=== PATIENT | female | born 1945 | race Caucasian/White ===

== ENCOUNTER → 2016-04-22 | Outpatient (CLI) | payer OTHER | LOC: BMCIMAGING 15:16 | PROVIDERS: ATTEND Internal Medicine | DX: R05 Cough (principal) ==

== ENCOUNTER → 2016-05-27 | Outpatient (CLI) | payer OTHER | LOC: BMCIMAGING 12:57 | PROVIDERS: ATTEND Nurse Practitioner Adult Health | DX: R05 Cough (principal); R53.81 Other malaise ==

== ENCOUNTER → 2016-10-07 | Outpatient (CLI) | payer OTHER | LOC: BMCIMAGING 11:15 | DX: J98.4 Other disorders of lung (principal) ==

== ENCOUNTER → 2016-10-29 | Outpatient (CLI) | payer OTHER | LOC: BMCIMAGING 08:52 | PROVIDERS: ATTEND Internal Medicine Endocrinology, Diabetes & Metabolism | DX: Z13.29 Encounter for screening for other suspected endocrine disorder (principal) | CPT/HCPCS: 76536-PO ==

== ENCOUNTER → 2016-10-31 | Outpatient (CLI) | payer OTHER | LOC: FIMAGING 14:48 | PROVIDERS: ATTEND Internal Medicine Infectious Disease | DX: J40 Bronchitis, not specified as acute or chronic (principal); C90.00 Multiple myeloma not having achieved remission; J32.4 Chronic pansinusitis; J34.2 Deviated nasal septum ==

== ENCOUNTER → 2016-11-05 | Outpatient (CLI) | payer OTHER | LOC: FIMAGING 10:06 | PROVIDERS: ATTEND Nurse Practitioner Adult Health | DX: R92.8 Other abnormal and inconclusive findings on diagnostic imaging of breast (principal) | CPT/HCPCS: G0204 ==

== ENCOUNTER 2017-02-04 10:09 | Day surgery (SDC) | payer OTHER ==
[2017-02-04] MEDS ORDERED: LIDOCAINE 1% 2 ML INJ ID PRN (10:44)
[2017-02-04] MEDS ORDERED: LR 1,000 ML IV ONE (10:44)
[2017-02-04 11:00] VITALS: PULSE 70
--- NOTE | 2017-02-04 12:46 | PDGENHP ---
History & Physical Chief Complaint: Screening colonoscopy Relevant Physical Exam: GEN: NAD. Cardiac: RRR. Lungs: CTA B. Abd: SOft, nt, nd
[2017-02-04] MEDS ORDERED: PROPOFOL/EMULSION 500 MG/50 ML BOTTLE IV ONE (12:47)
--- NOTE | 2017-02-04 13:00 | PDANEPAE ---
ANE Past Medical History - Cardiovascular History Hx Hypertension: No Hx Arrhythmias: No Hx Chest Pain: No Hx Coronary Artery / Peripheral Vascular Disease: No Hx CHF / Valvular Disease: No Hx Palpitations: No - Pulmonary History Hx COPD: Yes Hx Asthma/Reactive Airway Disease: Yes Hx Recent Upper Respiratory Infection: No Hx Oxygen in Use at Home: Yes Hx Sleep Apnea: Yes Sleep Apnea Screening Result - Last Documented: Positive Pulmonary History Comment: ASTHMA VS LUNG INFECTION 10/2016. TRYING VARIOUS INHALERS CURRENTLY. FLU 01/17/2017. TB 1968. [facility] USES C-PAP. PE 08/2014 - Neurologic History Hx Cerebrovascular Accident: No Hx Seizures: No Hx Dementia: No Neurologic History Comment: TIA - Endocrine History Hx Diabetes: No Hypothyroid: No Hyperthyroid: No Obesity: no - Renal History Hx Renal Disorders: No - Liver History Hx Hepatic Disorders: No - Neurological & Psychiatric Hx Hx Neurological and Psychiatric Disorders: Yes Neurological / Psychiatric History Comment: ANXIETY - Cancer History Hx Cancer: Yes Cancer History Comment: SMOLDERING MULTIPLE MYLEOMA - GI History Gastrointestinal History Comment: PREV COLONOSCOPY - Other Health History Other Health History: FACTOR 5 LEIDAN RECENTLY WAS SEEN BY DR LINDA GOODWIN. BORDERLINE ANEMIA. BURNING MOUTH SYNDROME. CURRENTLY HAS A BLACK HAIRY TONGUE AND PAIN IN REGION. DVT 30 YRS AGO. OSTEOPENIA/POROSIS - Surgical History Prior Surgeries: LT 4TH TOE REMVL CYST AND BONE SPUR 05/2012. TONSILLECTOMY ANE Review of Systems Review of Systems: - Exercise capacity METS (RN): 4 METS ANE Patient History - Allergies Allergies/Adverse Reactions: Tetracyclines Allergy (Verified 10/24/14 13:53) - Home Medications Home Medications: CITRACAL-VIT D 250 MG-200 TAB DAILY 10/24/14 [Last Taken 02/04/17] Rivaroxaban [Xarelto] DAILY 10/24/14 [Last Taken 01/31/17] Estradiol Transdermal Patch ONCE 01/28/17 [Last Taken 02/03/17] Herbal Drugs DAILY 01/28/17 [Last Taken 01/30/17] Prometrium HS 01/28/17 [Last Taken 02/04/17] - NPO status NPO Since - Liquids (Date): 02/04/17 NPO Since - Liquids (Time): 02:30 NPO Since - Solids (Date): 02/03/17 NPO Since - Solids (Time): 08:00 - Anes Hx Anes Hx: no prior problems - Smoking Hx Smoking Status: Former smoker - Alcohol Use Alcohol Use: Rarely - Family Anes Hx Family Anes Hx: neg - N/A ANE Labs/Vital Signs - Vital Signs Blood Pressure: 121/47 Heart Rate: 70 Respiratory Rate: 16 O2 Sat (%): 95 Height: 157.48 cm Weight: 57.606 kg ANE Physical Exam - Airway Neck exam: FROM Mallampati Score: Class 2 Mouth exam: normal dental/mouth exam - Pulmonary Pulmonary: no respiratory distress, no rales or rhonchi, clear to auscultation - Cardiovascular Cardiovascular: regular rate and rhythym, no murmur, rub, or gallop - ASA Status ASA Status: III ANE Anesthesia Plan Anesthesia Plan: MAC Total IV Anesthesia: Yes
[2017-02-04] MEDS ORDERED: ACETAMINOPHEN 500 MG TAB PO PRN (13:02)
[2017-02-04] MEDS ORDERED: ONDANSETRON 4 MG/2 ML VIAL IVP PRN (13:02)
[2017-02-04] MEDS ORDERED: ALBUTEROL 3 ML DEYVIAL IH PRN (13:02)
[2017-02-04] MEDS ORDERED: LR 500 ML IV PRN (13:02)
[2017-02-04] MEDS ORDERED: NALOXONE HCL 0.4 MG/ML INJ IVP PRN (13:02)
--- NOTE | 2017-02-04 13:20 | GIREPORT ---
Formerly [facility] - Endoscopy Department Patient Name: Michelle Mclaughlin Procedure Date: 02/04/2017 12:40 PM Patient Type: Outpatient Attending / ER Physician: Sg Greenberg MD Procedure: Colonoscopy Indications: Screening for colorectal malignant neoplasm Providers: Sg Greenberg MD Medicines: Monitored Anesthesia Care Complications: No immediate complications. Description of Procedure: After obtaining informed consent, the scope was passed under direct vis ion. Throughout the procedure, the patient's blood pressure, pulse, and oxyg en saturations were monitored continuously. The Colonoscope with irrigatio n channel was introduced through the anus and advanced to the terminal il eum, with identification of the appendiceal orifice and IC valve. The colono scopy was performed without difficulty. The patient tolerated the procedure w ell. The quality of the bowel preparation was good. Findings: The perianal and digital rectal examinations were normal. The terminal ileum appeared normal. A 6 mm polyp was found in the sigmoid colon. The polyp was sessile. The polyp was removed with a cold snare. Resection and retrieval were compl ete. Verification of patient identification for the specimen was done by the physician and nurse using the patient's name and date. Estimated blood loss was minimal. The retroflexed view of the distal rectum and anal verge was normal and showed no anal or rectal abnormalities. Estimated Blood Loss: Estimated blood loss: none. Post Op Diagnosis: - The examined portion of the ileum was normal. - One 6 mm polyp in the sigmoid colon, removed with a cold snare. Resec cee and retrieved. - The distal rectum and anal verge are normal on retroflexion view. Recommendation: - Discharge patient to home (with escort). - Resume previous diet. - Continue present medications. - Repeat colonoscopy in 5-10 years for surveillance based on pathology results. If the polyp is found to be adenomatous a repeat colonoscopy i n 5 years is recommended. - Await pathology results. Results are available within 10 days. - Thank you for allowing me to participate in the care of your patient. Attending Participation: I personally performed the entire procedure. Sg Greenberg MD Sg Greenberg MD 02/04/2017 1:19:47 PM This report has been signed electronicallyDakayla Greenberg MD Number of Addenda: 0 Note Initiated On: 02/04/2017 12:40 PM [email or web address]
--- NOTE | 2017-02-04 13:26 | POSTANESTH ---
Post Anesthetic Evaluation Cardiovascular Status: Normal, Stable Respiratory Status: Normal, Stable Level of Consciousness/Mental Status: Can Participate in Eval Pain Control: Adequate, Prn Tx Ordered Nausea/Vomiting Control: Adequate, Prn Tx Ordered Complications Possibly Related to Anesthesia: None Noted
[2017-02-04 14:37] VITALS: RESP 16
[2017-02-04 15:58] VITALS: BP 106/58; O2SAT 96
[2017-02-04 16:00] VITALS: TEMP 98.1
== END 2017-02-04 15:38 | disposition home or self-care (01) ==
LOC: FSGY 10:09
PROVIDERS: ATTEND Internal Medicine Gastroenterology
PROC: 0DBN8ZX Excision of Sigmoid Colon, Via Natural or Artificial Opening Endoscopic, Diagnostic (ICD-10-PCS; principal; 2017-02-04 11:15)
DX: Z12.11 Encounter for screening for malignant neoplasm of colon (principal); D12.5 Benign neoplasm of sigmoid colon; C90.00 Multiple myeloma not having achieved remission; R53.83 Other fatigue; R53.81 Other malaise; R05 Cough; D68.51 Activated protein C resistance; G47.33 Obstructive sleep apnea (adult) (pediatric); J44.9 Chronic obstructive pulmonary disease, unspecified; Z87.891 Personal history of nicotine dependence; Z86.711 Personal history of pulmonary embolism; Z86.718 Personal history of other venous thrombosis and embolism
CPT/HCPCS: J2704

== ENCOUNTER → 2017-06-20 | Outpatient (CLI) | payer OTHER | LOC: FIMAGING 10:21 | PROVIDERS: ATTEND Nurse Practitioner Adult Health | DX: R92.8 Other abnormal and inconclusive findings on diagnostic imaging of breast (principal) ==

== ENCOUNTER → 2017-12-25 | Outpatient (CLI) | payer OTHER | LOC: FIMAGING 15:30 | DX: Z12.31 Encounter for screening mammogram for malignant neoplasm of breast (principal) ==

== ENCOUNTER → 2018-05-25 | Outpatient (CLI) | payer OTHER | LOC: BMCIMAGING 11:19 | PROVIDERS: ATTEND Nurse Practitioner Adult Health | DX: M54.5 Low back pain (principal); M25.552 Pain in left hip; M53.3 Sacrococcygeal disorders, not elsewhere classified; M51.36 Other intervertebral disc degeneration, lumbar region; M51.37 Other intervertebral disc degeneration, lumbosacral region ==

== ENCOUNTER → 2018-06-10 | Outpatient (CLI) | payer OTHER | LOC: FIMAGING 18:40 | DX: M48.061 Spinal stenosis, lumbar region without neurogenic claudication (principal); M47.816 Spondylosis without myelopathy or radiculopathy, lumbar region; M46.96 Unspecified inflammatory spondylopathy, lumbar region ==